=== PATIENT | male | born 1930 | race Native Hawaiian/Other Pacific Islander ===

== ENCOUNTER 2016-11-10 12:04 | Outpatient (CLI) | payer OTHER | END 2016-11-10 13:05 | disposition home or self-care (01) | LOC: LABW 12:04 | DX: I12.9 Hypertensive chronic kidney disease with stage 1 through stage 4 chronic kidney disease, or unspecified chronic kidney disease (principal); N18.3 Chronic kidney disease, stage 3 (moderate); E11.9 Type 2 diabetes mellitus without complications; D63.1 Anemia in chronic kidney disease; H54.0 Blindness, both eyes | CPT/HCPCS: 36415; 83883; 84165; 84166 ==

== ENCOUNTER 2017-04-07 11:42 | Outpatient (CLI) | payer OTHER ==
[2017-04-07 12:36] LABS: POTASSIUM 4.2 mmol/L (3.6-5.2)
== END 2017-04-07 19:10 | disposition home or self-care (01) ==
LOC: LABW 11:42
PROVIDERS: Nurse Practitioner Family
DX: E11.9 Type 2 diabetes mellitus without complications (principal)
CPT/HCPCS: 36415; 80048; 85014; 85018

== ENCOUNTER 2017-08-15 09:13 | Outpatient (CLI) | payer OTHER ==
[2017-08-15 09:42] LABS: PLATELET COUNT 157 K/uL (142-355)
[2017-08-15 10:24] LABS: POTASSIUM 4.5 mmol/L (3.6-5.2)
== END 2017-08-15 20:01 | disposition home or self-care (01) ==
LOC: LABW 09:13
PROVIDERS: Nurse Practitioner Family
DX: E11.9 Type 2 diabetes mellitus without complications (principal); N18.6 End stage renal disease
CPT/HCPCS: 36415; 80053; 82306; 82728; 83036; 83540; 83550; 83970; 84100; 85027